=== PATIENT | female | born 1950 | race Caucasian/White ===

== ENCOUNTER 2016-04-03 02:50 | Inpatient (IN) | payer MEDICARE, OTHER ==
--- NOTE | ~2016-04-03 | DS ---
Discharge Summary [id number] [place]. [address] NAME: MARY GEORGE : 50 STATUS : DIS IN PAT#: [id number] AGE: 66 ADM/REG DATE : 04/04/16 MR#: [id number] REPORT SERV DATE: 04/07/16 DICTATED BY: LAMONT DIAS DATE: 04/05/16 REPORT STATUS : Draft TRANSCRIBED BY: MODL DATE: 04/05/16 ADMISSION DATE: 04/04/2016 DISCHARGE DATE: 04/05/2016 REASON FOR ADMISSION: Acute kidney injury and acute cystitis. HPI: Please refer to Dr. Donavon Rouse's history and physical dated 04/03/2016, for complete details regarding patient's admission. In brief, the patient was admitted to Hospitalist Service for acute cystitis and UTI and decreased urine output. HOSPITAL COURSE: The patient had an uncomplicated hospital course. The patient had a Borges catheter placed in the emergency room, and it was discontinued the following day. She has been urinating just fine. She did present with an acute kidney injury with a creatinine of 2.32 and her baseline is around 1.4. She was given IV fluids, started on IV Azactam for an acute cystitis. She has a history of ESBL, E. coli. Urinalysis was positive for UTI. Urine culture came back on the day of discharge, which showed E. coli, that was susceptible to Azactam. She has received about three days worth of IV antibiotics. We will give her 1 dose of fosfomycin prior to discharge. Her acute kidney injury is resolving. We do not have a kidney function on the day of discharge; however, it was down to 1.86 the day prior which was at her baseline. The patient will be discharged in a stable condition. DISCHARGE DIAGNOSES: 1. Acute cystitis secondary to Escherichia coli, now resolving. 2. CROW on CKD stage III, now resolved. 3. Hypoalbuminemia secondary to chronic issues. 4. Chronic pain dependent on narcotics. 5. Generalized anxiety disorder. 6. Hypertension. 7. Obstructive sleep apnea not on CPAP. 8. Morbid obesity. PROCEDURES: Include CT scan of the abdomen and pelvis without contrast, which showed no acute process. DISCHARGE MEDICATIONS: Include aspirin 325 mg daily, Wellbutrin 150 mg daily, Restasis daily, Benadryl p.r.n., Lexapro 20 mg daily, folic acid 1 mg daily, melatonin daily, nicotine patch daily, Spiriva daily, oxycodone 20 mg every eight hours, potassium chloride 10 mEq daily, Xanax 0.5 mg three times a day, Nexium 40 mg p.r.n., Zofran p.r.n., fish oil, p.r.n., Bentyl 20 mg p.r.n., metformin 500 mg with supper, baclofen 10 mg three times a day p.r.n., Bumex 1 mg daily, losartan 25 mg daily, Deltasone 20 mg daily, albuterol p.r.n., fish oil p.r.n. The patient has completed her antibiotics, will follow up with Dr. Holm as scheduled for her urinary issues. Discharge Summary [address] [address] NAME: MARY GEORGE : 50 STATUS : DIS IN PAT#: [id number] AGE: 66 ADM/REG DATE : 04/04/16 MR#: [id number] REPORT SERV DATE: 04/07/16 DICTATED BY: LAMONT DIAS DATE: 04/05/16 REPORT STATUS : Draft TRANSCRIBED BY: JUDI DATE: 04/05/16 MARGE Lamont Dias MD / [id number] CC: MD Jesus Boone M.D. Jeffrey K. Mullins, MD
--- NOTE | ~2016-04-03 | HP ---
History And Physical [address] [place]. [address] NAME: MARY GEORGE : 50 STATUS : ADM Alfonso PAT#: [id number] AGE: 66 ADM/REG DATE : 04/03/16 MR#: [id number] REPORT SERV DATE: 04/03/16 DICTATED BY: ESMER HERNANDEZ DATE: 04/03/16 REPORT STATUS : Draft TRANSCRIBED BY: MODL DATE: 04/03/16 DATE OF ADMISSION: 04/03/2016 CHIEF COMPLAINT: "No urine output." HISTORY OF PRESENT ILLNESS: Ms. George is a 66-year-old female with history of chronic pain, on multiple chronic narcotics as well as multiple admissions for oversedation as well as obstructive sleep apnea, obesity hypoventilation syndrome, and COPD, who presents to the emergency room today with reports of abrupt cessation of urinary output. The patient states that she was in her usual state of health until Tuesday afternoon when she noticed that her urine output abruptly and completely stopped causing her great concern and prompting her presentation to the emergency department. Of note, she did see her primary care physician earlier that day and reportedly was given a prescription for what sounds to be like Bactrim for what she describes as urinary tract infection as well as possible COPD exacerbation. Review of [facility] reveals multiple discharge diagnoses in the past 12 months for acute kidney injury, all of which seemed to have resolved with IV fluids and holding nephrotoxic medications. Initial evaluation in the emergency department notable for a creatinine of 2.32, baseline is usually about 1.3 to 1.6. She also has a urinary tract infection as well. CT imaging was unremarkable except for abdominal aortic aneurysm measuring approximately 3.8 cm in diameter. She denies any fevers, night sweats, chills, cough, sputum production, shortness of breath, chest pain, palpitations, abdominal pain, nausea, vomiting, or diarrhea. Does endorse some constipation as well as decrease in urinary output. REVIEW OF SYSTEMS: Comprehensive review of systems is otherwise negative unless listed in history of present illness. PREVIOUS MEDICAL HISTORY: 1. Chronic pain, on multiple sedating medications. 2. Previous admissions for oversedation and/or overdoses including one requiring intubation. 3. Obstructive sleep apnea. 4. Obesity hypoventilation syndrome. 5. COPD. 6. Bipolar disease. 7. Anxiety. 8. Chronic kidney stage III. Baseline creatinine 1.3 to 1.6. 9. Irritable bowel syndrome. 10.Fibromyalgia. History And Physical [address] [address] NAME: MARY GEORGE : 50 STATUS : ADM Alfonso PAT#: [id number] AGE: 66 ADM/REG DATE : 04/03/16 MR#: [id number] REPORT SERV DATE: 04/03/16 DICTATED BY: ESMER HERNANDEZ DATE: 04/03/16 REPORT STATUS : Draft TRANSCRIBED BY: JUDI DATE: 04/03/16 11.History of DVT. 12.Morbid obesity. 13.Hypertension. 14.Degenerative joint disease. 15.Borderline diabetes. SURGICAL HISTORY: 1. Abdominal hysterectomy. 2. C-spine surgery. 3. Basal cell cancer resection. 4. Wrist surgery. ALLERGIES: INCLUDE CEFADROXIL, PENICILLIN, SULFA DRUGS, LATEX, PHENERGAN, VANCOMYCIN, AND LYRICA. HOME MEDICATIONS: 1. Albuterol one inhalation q.4 hours p.r.n. 2. Xanax 0.5 mg q.8 hours. 3. Aspirin 325 mg daily. 4. Baclofen 10 mg t.i.d. p.r.n. 5. Bumex 1 mg daily. 6. Bupropion 150 mg daily. 7. Cyclosporine 1 drop b.i.d. 8. Dicyclomine 20 mg daily p.r.n. 9. Benadryl 25 mg at bedtime. 10.Doxycycline 100 mg b.i.d. 11.Lexapro 20 mg daily. 12.Nexium 40 mg b.i.d. p.r.n. 13.Folic acid 1 mg daily. 14.Losartan 25 mg daily. 15.Melatonin 10 mg at bedtime. 16.Metformin ER 500 mg daily. 17.Nicotine transdermal patch daily. 18.Zofran 4 mg q.6 hours p.r.n. 19.OxyContin 20 mg q.8 hours. 20.Potassium chloride 10 mEq daily. 21.Prednisone 20 mg daily. 22.Spiriva 1 cap inhalation daily. 23.Fish oil 2 tabs daily. SOCIAL HISTORY: She smokes 2 to 3 cigarettes a day. Denies any alcohol. Denies any illicits. FAMILY MEDICAL HISTORY: The patient states she is adopted and is not aware of her family medical history. LABS AND IMAGING: History And Physical [address] [address] NAME: MARY GEORGE : 50 STATUS : ADM Alfonso PAT#: [id number] AGE: 66 ADM/REG DATE : 04/03/16 MR#: [id number] REPORT SERV DATE: 04/03/16 DICTATED BY: ESMER HERNANDEZ DATE: 04/03/16 REPORT STATUS : Draft TRANSCRIBED BY: MODLatrell DATE: 04/03/16 1. White count is 7.6, hemoglobin is 12.6, hematocrit is 37.9, and platelets 210. 2. Sodium is 137, potassium 3.4, chloride 100, carbon dioxide 27, BUN 22, creatinine 2.32, glucose is 107, calcium is 8.7, protein is 7.9, albumin 3.2, bilirubin is 0.3, ALT is 13, AST is 16, alkaline phosphatase is 88. 3. Urinalysis: Spec gravity is 1.016, cloudy with large leukocyte esterase, 75 white blood cells per high-powered field with 4 epis, occasional bacteria. 4. CT scan of the abdomen and pelvis shows abdominal aortic aneurysm in the proximal abdominal aorta with a 3.8 AP diameter at the level of the celiac trunk. No evidence of rupture. Otherwise, no other abdominopelvic pathology identified. PHYSICAL EXAMINATION: VITAL SIGNS: Temperature is 98.1 degrees Fahrenheit, pulse is 69, respirations 16, saturating 93% on room air. Blood pressure initially 91/69. On recheck, blood pressure is now 113/50. Heart rate of 70. GENERAL: The patient is awake, alert, in no acute distress, resting comfortably in bed. She is a chronically ill-appearing elderly female, who currently is very anxious. HEENT: Atraumatic and normocephalic. Slightly dry mucous membranes. Pupils are equal, round, and reactive to light and accommodation. Extraocular eye movements are intact. No scleral icterus. NECK: No jugular venous distention. No carotid bruits. CARDIAC: Regular rate and rhythm. No murmurs, rubs, or gallops. Normal S1, S2. LUNGS: Clear to auscultation bilaterally. No wheezes, rhonchi, or crackles. ABDOMEN: Obese, soft, nontender, nondistended. Good bowel sounds. No rebound, guarding, or rigidity. EXTREMITIES: Warm and perfused. No cyanosis, clubbing, or edema. SKIN: Warm and dry. PSYCH: Affect is very anxious. NEURO: Alert and oriented x3. Cranial nerves II through XII are grossly intact. Speech is normal. Gait not assessed. ASSESSMENT: Ms. George is a 66-year-old female, who presents with abrupt cessation of urinary output and found to have a recurrent urinary tract infection as well as acute kidney injury on chronic kidney disease, stage 3. PROBLEM LIST: 1. Urinary tract infection. 2. Acute kidney injury on chronic kidney disease, stage 3. 3. Decreased urinary output. 4. Chronic pain on chronic narcotics. 5. Hypertension. 6. Anxiety. PLAN: 1. Urinary tract infection. The patient seems to have had multiple urinary tract infections in the past 12 months. Urine cultures show 2 organisms, one being E. coli and next thing Enterococcus faecalis. Unfortunately, both these organisms are resistant to fluoroquinolones as well as other medications. Given her multiple History And Physical [address] [address] NAME: MARY GEORGE : 50 STATUS : ADM Alfonso PAT#: [id number] AGE: 66 ADM/REG DATE : 04/03/16 MR#: [id number] REPORT SERV DATE: 04/03/16 DICTATED BY: ESMER HERNANDEZ DATE: 04/03/16 REPORT STATUS : Draft TRANSCRIBED BY: MODL DATE: 04/03/16 antibiotic allergies as well, I will initially place the patient on Azactam to treat the E. coli. We will follow up urine culture. 2. Acute kidney injury on chronic kidney disease, stage 3. The patient has also had multiple episodes of acute kidney injury in the past 12 months, all of which seems to have resolved with IV fluids and holding nephrotoxic medications. We will hold her Bumex as well as losartan, provide IV fluid hydration, checking urine lytes as well as renal ultrasound. 3. Decreased urinary output. When Borges catheter was placed in the emergency department, she initially had 100 mL of urinary output, suggesting that she was not having any urinary retention. I suspect this is all due to urinary tract infection as well as possible dehydration and prerenal acute kidney injury. 4. Chronic pain, on chronic narcotics. We will continue these cautiously as the patient has a history of oversedation and hypoxic respiratory failure secondary to her home medications. 5. DVT prophylaxis. Heparin subcu. CODE STATUS: The patient wished to be full code. JCB/MODL Esmer Hernandez MD / [id number] CC: Jesus Miles M.D.
[~2016-04-03 02:50] MED LIST: *UNABLE2; ADVAIR INH; ALBUTEROL5 INH; ALPRAZOLAM; ASAB PO; ASAEC PO; AZOPT OPH; BACDS PO; BACLOFEN20 MG PO; BEN25 PO; BENADRYL 50 MG50 MG PO; BENTYL20 PO; BIOFREEZE WITH120 GM TOP; BUM1 PO; CLEOCIN300 MG PO; COZ25 PO; CYCLOSPORINE OPH; DEMA100 PO; DIAM250B PO; DORYX100 MG PO; DSS PO; DUONEB INH; DURA100 TOP; DURA50 TOP; DURA75 TOP; FENTANYL; FENTANYL PATCH T; FISH OIL OTC PO; FISH OIL PO; FISH-EPA1000 MG PO; FLEX PO; FOLIC ACID; FOLIC PO; FORTAMET500 MG PO; H1 PO; H2 PO; HABIT21 TOP; HALF81 PO; K-TABS10 MEQ PO; KDUR20 PO; KLOR-CON 1010 MEQ PO; KLOR-CON M2020 MEQ PO; L40 PO; LEVAQUIN5T PO; LEXAPRO20 PO; LIDODERM TOP; LIOR10 PO; LORCET PO; LORTAB10 PO; LYRICA50 PO; MELA3 PO; MELATONIN10 M2 PO; MELATONIN5 M1 PO; MICRO-K10 MEQ PO; MOMUD PO; MULTIPLE VIT PO; MULTIVIT/MIN PO; NASACORTAQ NAS; NEUR100 PO; NEXIUM40 PO; NORCO1 TAB PO; NYSTATIN LIQUID PO; NYSTOP100000 MG TOP; ONDANSETRON; OXYCOD PO; OXYCODONE; OXYCODONE HCL 20 MG PO; OXYCON20 PO; P20 PO; POTASSIUM CHLORIDE PO; POTASSIUM RX; PR25 PO; PREGABALIN; PRENATAL VITAMINS PO; PROAIR HFA INH; PROMETHAZINE; PROVHFA INH; PROVIGIL2 PO; RESTASIS OPH; SPIRIVA INH; SPIRO25 PO; SULFAMETHOXAZOLE PO; TRIMETHOPRIM PO; ULTRAM50 PO; VITAMIN D1000 UNI1 PO; VITAMIN D2 PO; WELLXL150 PO; X5 PO; XANAX; XANAX1 MG PO; ZOFRAN4 PO; ZOFRAN8 PO; [UNRECOGNIZED DRUG - OTHER] PO; [UNRECOGNIZED DRUG - OTHER] PO
[2016-04-03 03:44] LABS: BASOPHILS 0.8 %; BASOPHILS ABSOLUTE 0.06 10/3/uL (0.0-0.16); EOSINOPHILS ABSOLUTE 0.68 10/3/uL (0.0-0.53); HEMOGLOBIN 12.6 g/dL (12.0-16.0); IMMATURE GRANULOCYTES 0.3 %; IMMATURE GRANULOCYTES ABSOLUTE 0.02 10/3/uL (0.0-0.11); LYMPHOCYTES 31.5 %; LYMPHOCYTES ABSOLUTE 2.38 10/3/uL (0.67-4.30); MEAN CORPUS HGB CONC 33.2 g/dL (32.0-36.0); MEAN CORPUSCULAR HEMOGLOB 28.4 pg (26.0-34.0); MEAN PLATELET VOLUME 10.6 fL (9.2-13.0); MONOCYTES 7.9 %; NEUTROPHILS 50.5 %; NEUTROPHILS ABSOLUTE 3.82 10/3/uL (2.02-8.40); PLATELET COUNT 210 10/3/uL (150-400); RBC DISTRIBUTION WIDTH 13.9 % (12.0-16.0); RED CELL COUNT 4.44 10/6/uL (4.0-5.6); WHITE BLOOD CELLS 7.6 10/3/uL (4.5-10.5)
[2016-04-03 03:46] LABS: ER CBC TAT 0 Hrs 10 Mins; HEMATOCRIT 37.9 % (36.0-48.0); MANUAL DIFF NO %; MEAN CORPUSCULAR VOLUME 85.4 fL (80-100)
[2016-04-03 03:46] LABS: ASCORBIC ACID (UR NOT ORDER) NEG (NEG); BILIRUBIN, URINE NEGATIVE (NEG); ER URINALYSIS TAT 0 Hrs 00 Mins; KETONE, URINE NEGATIVE (NEG); LEUKOCYTE ESTERASE(NOT OR LARGE (NEG); NITRITE (URINE) NEG (NEG); WBC (NOT ORDERED) (RFLEX) 75 (0-5)
[2016-04-03 04:04] LABS: A/G RATIO 0.7 (0.7-1.9); ALBUMIN 3.2 G/DL (3.5-5.0); ALKALINE PHOSPHATASE 88 U/L (45-117); BUN (BLOOD UREA NITROGEN) 22 MG/DL (6-23); CALCIUM, SERUM 8.7 MG/DL (8.5-10.4); CHLORIDE, SERUM 100 MMOL/L (96-112); CO2 (CARBON DIOXIDE) 27 MMOL/L (24-34); CREATININE 2.32 MG/DL (0.55-1.02); GFR AFRICAN AMERICAN 25 ML/MIN (>=60); GFR NON AFRICAN AMERICAN 21 ML/MIN (>=60); GLOBULIN 4.7 G/DL (2.5-4.1); GLUCOSE, SERUM 107 MG/DL (60-99); POTASSIUM, SERUM 3.4 MMOL/L (3.5-5.3); SGOT(AST) 16 U/L (5-40); SGPT(ALT) 13 U/L (5-65); SODIUM, SERUM 137 MMOL/L (135-148); TOTAL BILIRUBIN 0.3 MG/DL (0-1.2); TOTAL PROTEIN 7.9 G/DL (6.0-8.5)
[2016-04-03] MEDS ORDERED: FISH OIL PO (04:54)
[2016-04-03 05:25] LABS: LACTATE 1.4 MMOL/L (0.3-2.4)
[2016-04-04 04:01] LABS: BASOPHILS 0.6 %; BASOPHILS ABSOLUTE 0.03 10/3/uL (0.0-0.16); EOSINOPHILS 9.8 %; EOSINOPHILS ABSOLUTE 0.47 10/3/uL (0.0-0.53); IMMATURE GRANULOCYTES 0.2 %; IMMATURE GRANULOCYTES ABSOLUTE 0.01 10/3/uL (0.0-0.11); LYMPHOCYTES 34.9 %; LYMPHOCYTES ABSOLUTE 1.68 10/3/uL (0.67-4.30); MEAN CORPUS HGB CONC 33.3 g/dL (32.0-36.0); MEAN CORPUSCULAR HEMOGLOB 29.5 pg (26.0-34.0); MEAN PLATELET VOLUME 10.5 fL (9.2-13.0); MONOCYTES 9.1 %; MONOCYTES ABSOLUTE 0.44 10/3/uL (0.21-1.20); NEUTROPHILS 45.4 %; NEUTROPHILS ABSOLUTE 2.19 10/3/uL (2.02-8.40); PLATELET COUNT 193 10/3/uL (150-400); RBC DISTRIBUTION WIDTH 13.9 % (12.0-16.0); RED CELL COUNT 3.73 10/6/uL (4.0-5.6); WHITE BLOOD CELLS 4.8 10/3/uL (4.5-10.5)
[2016-04-04 04:02] LABS: MANUAL DIFF NO %; MEAN CORPUSCULAR VOLUME 88.5 fL (80-100)
[2016-04-04 04:12] LABS: CALCIUM, SERUM 8.1 MG/DL (8.5-10.4); CHLORIDE, SERUM 109 MMOL/L (96-112); CO2 (CARBON DIOXIDE) 26 MMOL/L (24-34); CREATININE 1.86 MG/DL (0.55-1.02); GFR AFRICAN AMERICAN 32 ML/MIN (>=60); GFR NON AFRICAN AMERICAN 28 ML/MIN (>=60); GLUCOSE, SERUM 97 MG/DL (60-99); POTASSIUM, SERUM 3.8 MMOL/L (3.5-5.3)
[2016-04-04 04:13] LABS: ALBUMIN 2.5 G/DL (3.5-5.0); BUN (BLOOD UREA NITROGEN) 17 MG/DL (6-23); PHOSPHORUS, SERUM 3.4 MG/DL (2.5-4.5); SODIUM, SERUM 144 MMOL/L (135-148)
[2016-04-04 11:12] LABS: TROPONIN I <0.02 NG/ML (<0.05)
[2016-10-11] MEDS ORDERED: BACLOFEN20 MG PO (11:38)
[2016-10-11] MEDS ORDERED: ZOFRAN4 PO (11:39)
[2016-10-11] MEDS ORDERED: OXYCON20 PO (11:40)
[2016-10-11] MEDS ORDERED: VESICARE10 MG PO (11:40)
[2016-10-11] MEDS ORDERED: DURA25 TOP (11:41)
[2016-10-11] MEDS ORDERED: XANAX1 MG PO (11:43)
[2016-10-11] MEDS ORDERED: VENTOLIN HFA INH (11:45)
[2016-10-11] MEDS ORDERED: KDUR10 PO (11:47)
[2016-10-11] MEDS ORDERED: FORTAMET500 MG PO (11:48)
[2016-10-11] MEDS ORDERED: BUMETANIDE PO (11:48)
[2016-10-11] MEDS ORDERED: WELLXL150 PO (11:49)
[2016-10-11] MEDS ORDERED: NEXIUM40 PO (11:50)
[2016-10-11] MEDS ORDERED: L40 PO (11:51)
[2016-10-11] MEDS ORDERED: COZ25 PO (11:52)
[2016-10-11] MEDS ORDERED: *UNABLE1 (11:53)
[2016-10-12] MEDS ORDERED: LEXAPRO20 PO (12:24)
[2016-10-12] MEDS ORDERED: FISH-EPA1000 MG PO (12:25)
[2016-10-12] MEDS ORDERED: HALF81 PO (12:29)
[2016-10-12] MEDS ORDERED: SPIRIVA INH (12:30)
[2016-10-12] MEDS ORDERED: RESTASIS OPH (12:32)
[2016-10-12] MEDS ORDERED: PROVIGIL1 PO (12:33)
[2016-10-12] MEDS ORDERED: RELISTOR PO (12:41)
[2016-10-14] MEDS ORDERED: SEROQUEL50 MG PO (12:33)
== END 2016-04-05 15:45 | disposition home or self-care (01) | DRG 683 ==
LOC: ER 02:50 → 4SO 05:37
PROVIDERS: Internal Medicine; Specialist
DX: N17.9 Acute kidney failure, unspecified (principal); N30.00 Acute cystitis without hematuria; E66.2 Morbid (severe) obesity with alveolar hypoventilation; J44.9 Chronic obstructive pulmonary disease, unspecified; Z68.41 Body mass index [BMI] 40.0-44.9, adult; I12.9 Hypertensive chronic kidney disease with stage 1 through stage 4 chronic kidney disease, or unspecified chronic kidney disease; F41.9 Anxiety disorder, unspecified; Z79.891 Long term (current) use of opiate analgesic; G89.29 Other chronic pain; F17.210 Nicotine dependence, cigarettes, uncomplicated; Z88.8 Allergy status to other drugs, medicaments and biological substances; Z88.1 Allergy status to other antibiotic agents; Z88.0 Allergy status to penicillin; Z88.2 Allergy status to sulfonamides; Z91.040 Latex allergy status; Z79.82 Long term (current) use of aspirin; Z79.84 Long term (current) use of oral hypoglycemic drugs; Z79.52 Long term (current) use of systemic steroids; N18.3 Chronic kidney disease, stage 3 (moderate); E86.0 Dehydration; F31.9 Bipolar disorder, unspecified; K58.9 Irritable bowel syndrome, unspecified; M79.7 Fibromyalgia; Z86.718 Personal history of other venous thrombosis and embolism; Z85.828 Personal history of other malignant neoplasm of skin; B96.20 Unspecified Escherichia coli [E. coli] as the cause of diseases classified elsewhere
CPT/HCPCS: 74176; 80053; 80069; 81001; 82570; 83605; 83935; 84300; 84484; 85025; 87077; 87086; 87186; 96374; 96375; 96376; 99285; A9270-GY; J1956; J2405

== ENCOUNTER 2016-04-16 14:15 | Inpatient (IN) | payer MEDICARE, OTHER ==
--- NOTE | ~2016-04-16 | HP ---
History And Physical [id number] [facility] [place]. [address] NAME: MARY GEORGE : 50 STATUS : ADM IN [facility]#: [id number] AGE: 66 ADM/REG DATE : 04/16/16 MR#: [id number] REPORT SERV DATE: 04/16/16 DICTATED BY: ROSANA VILLARREAL DATE: 04/16/16 REPORT STATUS : Draft TRANSCRIBED BY: MODL DATE: 04/16/16 DATE OF ADMISSION: 04/16/2016 REASON FOR ADMISSION: Hypoxic respiratory failure, altered mental status. HISTORY OF PRESENT ILLNESS: This is an unfortunate 66-year-old obese female with history of MANFRED; obesity hypoventilation syndrome, not on the CPAP, needs a CPAP; history of COPD; bipolar; generalized anxiety disorder; chronic pain management; zealous amounts of narcotics including fentanyl patch and oxycodone and known history of overdoses on benzodiazepines and opiate narcotics per history; known history of fibromyalgia; history of DVT; known history in the past if she has ever had an IVC filter. At one point, she said she did, and then she stated she did not. Imaging did not confirm an IVC filter placement; known history of CKD 3, baseline about 1.6; history of colitis; migraine headaches; IBS; history of hysterectomy, recently discharged in early March for COPD exacerbation; exertional hypoxia, was recommend to go to facility, but the patient demanded to go home. Noted noncompliance. The patient then was readmitted in late 03/2014 and discharged 04/07, for which at that time, was found to have acute cystitis secondary to E. coli, CROW on CKD, hypoalbuminemia, and chronic pain. As a result, the patient was discharged on oxycodone 20 every eight hours, Xanax 0.5 t.i.d. p.r.n., Bentyl, baclofen t.i.d. The patient comes in with significant hypoxia, at one point subjectively was thought to be in the 70s, significant altered mental status. The patient immediately was given 1 mg of IV Narcan. The patient apparently became extremely agitated, getting out of the bed, had to get two separate rounds of 1 mg IV Ativan. Now, the patient is more somnolent. I was asked then asked to admit the patient. When I do sternal rub, the patient awakens with her eyes, she fixates, takes about 20 seconds to fully answer my questions. She does answer appropriately. She says it is 2016. She says it is April. She denies taking any zealous use of narcotics. Cannot reliably tell me if she has any recent fevers, chills, nausea, vomiting, diarrhea, chest pain, or chest pressure. Does note some positive shortness of breath. Chest x-ray here is still pending. REVIEW OF SYSTEMS: Done, see HPI, otherwise negative. PAST MEDICAL HISTORY: See above. PAST SURGICAL HISTORY: See above. ALLERGIES: APPARENTLY ARE PENICILLIN, SULFA, LATEX, PHENERGAN, VANCOMYCIN, LYRICA, CEFADROXIL, THOSE ALL COULD BE POSSIBLY TESTED VIA SKIN TESTING IF SHE TRULY HAS ALLERGIES. SOCIAL HISTORY: She is a former smoker. Unable to determine if she is still actively smoking, two to three cigarettes a day. Denies alcohol. Denies drug use other than her prescriptions. History And Physical [address] [address] NAME: MARY GEORGE : 50 STATUS : ADM IN [facility]#: [id number] AGE: 66 ADM/REG DATE : 04/16/16 MR#: [id number] REPORT SERV DATE: 04/16/16 DICTATED BY: ROSANA VILLARREAL DATE: 04/16/16 REPORT STATUS : Draft TRANSCRIBED BY: JUDI DATE: 04/16/16 FAMILY HISTORY: She is adopted. Not aware of her biologic family history. SURGICAL HISTORY: Includes abdominal hysterectomy, C-spine surgery, basal cell cancer skin resection, wrist surgery. OBJECTIVE: VITAL SIGNS: Thankfully, she is currently now 150 systolic. She was 139/60, breathing 16 breaths a minute. She was 1.77% apparently on room air, now she is 98% on 2 L of oxygen. She is able to protect her airway. She is breathing about 16 breaths a minute. She is afebrile. Her heart rate is about 92. GENERAL: Guarded. HEENT: PERRLA. No scleral icterus. CARDIOVASCULAR: Regular rate and rhythm. No murmur. RESPIRATORY: Decreased breath sounds bibasilarly. Bibasilar crackles. ABDOMEN: Mild tenderness to palpation, more in the epigastric region. No rebound tenderness. No peritoneal signs. EXTREMITIES: She has 1+ nonpitting edema. NEURO: She takes about 20 seconds to answer appropriately. A and O x4/4. GCS of 14 to 15. Does not fully answer my questions if she has fevers or chills or nausea or vomiting. PSYCH: Unable to assess given her neuro status. LABORATORY DATA: Labs are 8.3 white count, 12.2 hemoglobin, 163,000 platelets, 3.6 potassium, 24 bicarb, 1.57 creatinine, 15 BUN. 142 sodium, 141 sugar, albumin 2.5. Urinalysis is clean, just 2 white blood cells, no nitrite, no leukocyte esterase. ABG, 7.37/47/80 on 28%. I am getting a repeat before she goes to the IMCU. CT abdomen and pelvis I am getting is pending. Chest x-ray still pending. Also has an EKG, shows borderline primary AV block, bradycardia at [address]-T changes. ASSESSMENT AND PLAN: 1. Present in the emergency department, acute hypoxic respiratory failure possibly due to opiate and other narcotic overdose with significant reversal on 1 mg of IV Narcan that required compensatory Ativan to keep the patient from becoming a harm to herself and others. 2. Systemic inflammatory response syndrome given tachypnea and tachycardia with heart rate at one time above 90. 3. Generalized anxiety disorder. 4. Possible social handicap if has multiple bouts of drug overdose. 5. History of fibromyalgia. 6. History of irritable bowel syndrome. 7. History of bipolar. 8. Chronic kidney disease. PLAN: We will go ahead and admit this patient empirically to the IMCU, as the patient came in drug overdose, significant respiratory failure saturating in the 70s on room air. Thankfully, she is much more stabilized at this time. I will get an ABG to confirm prior to IMCU transfer. Empirically, we will go ahead and place her on Levaquin and Flagyl. She was History And Physical [address] [place]. [address] NAME: MARY GEORGE : 50 STATUS : ADM IN [facility]#: [id number] AGE: 66 ADM/REG DATE : 04/16/16 MR#: [id number] REPORT SERV DATE: 03/10/17 DICTATED BY: ROSANA VILLARREAL DATE: 04/16/16 REPORT STATUS : Draft TRANSCRIBED BY: MODL DATE: 04/16/16 hypoxic. If her cultures are all negative and tomorrow upon further questioning, she appears to be more drug overdose slowly consider discontinuing the antibiotics, get an interim CT of the brain, CT abdomen and pelvis during abdominal pain. We will also check an ammonia level, urine drug screen. IV Ativan with Narcan p.r.n. Head of bed at least 30 degrees given aspiration risk. Spiriva and Dulera with IV Solu-Medrol given her significant hypoxia present on admission. Could consider possible Psychiatry evaluation and Case Management evaluation regarding bridging as an outpatient for the patient's safety given multiple readmissions and apparent at least more than two history of drug overdose presumed from the history. See rest of my orders. All questions were answered. It took well over 60 minutes to do. Reference [employer]. WST/JAYESHL Rosana Villarreal, DO / [id number] CC: Daniele Marcano M.D.
--- NOTE | ~2016-04-16 | DS ---
Discharge Summary [id number] [place]. [address] NAME: MARY GEORGE : 50 STATUS : DIS IN PAT#: [id number] AGE: 66 ADM/REG DATE : 04/16/16 MR#: [id number] REPORT SERV DATE: 04/21/16 DICTATED BY: ROSA SANTIAGO DATE: 04/20/16 REPORT STATUS : Draft TRANSCRIBED BY: MODL DATE: 04/20/16 ADMISSION DATE: 04/16/2016 DISCHARGE DATE: 04/20/2016 PAIN SPECIALIST: Dr. Yodit Ritchie. FINAL DIAGNOSES: 1. Acute toxic encephalopathy, improved. 2. Medication overdose. 3. Acute hypoxic respiratory failure, resolved. 4. History of chronic obstructive pulmonary disease and obesity hypoventilation syndrome. 5. Status post mild diastolic congestive heart failure. 6. Chronic lymphedema. 7. Chronic kidney disease III. 8. Bipolar 2 disorder. 9. Anxiety disorder. 10.Chronic pain. 11.Morbid obesity. 12.Noncompliance. DIAGNOSTIC EXAMS: Chest x-ray showing recurrent failure, cardiomegaly. AP chest x-ray showing stable mildly prominent pulmonary vasculature without segmental consolidation. CAT scan of the brain showing normal noncontrast head CT. No acute pathology seen. No interval change from January. Echocardiogram showing borderline quality sound transmission. Normal left ventricular systolic function with estimated LVEF of 55%. Normal right ventricular size and function. Mild diastolic dysfunction. HOSPITAL COURSE: Please refer to the H and P done by Dr. Arun Villarreal dated on 04/16/2016. Briefly, this is a 66-year-old female, who comes in with lethargy. The patient has a history of chronic pain, on chronic narcotics, being seen by pain specialist, bipolar, and anxiety and comes in with change in mental status. The patient went to the emergency room with a history that the patient took more than the prescribed medications. ABG was done and she was found to be in acute hypoxic respiratory failure, almost went to the IMCU, but remained stable enough after Narcan was given. The patient was now maintained in telemetry and several times she was told that she needs to taper down her medications, but she refused. We got PT involved and they said that she needs to go to a detention facility and she refused. The patient remained stable since then, but was diagnosed with some mild diastolic congestive heart failure in which we increased her Bumex and tolerated that. The patient wants to increase the medications, and we said she does not need that and that would cause her some harm and basically said that she rather go home so that she can take her own prescribed narcotics. I discussed this with Dr. Miles, who agrees that she needs to be tapered on her narcotics and needs to go to rehab, but if she does not want to we have no choice, but to discharge her. The patient will now be discharged with the above Discharge Summary [id number] [place]. [address] NAME: MARY GEORGE : 50 STATUS : DIS IN PAT#: [id number] AGE: 66 ADM/REG DATE : 04/16/16 MR#: [id number] REPORT SERV DATE: 04/21/16 DICTATED BY: ROSA SANTIAGO DATE: 04/20/16 REPORT STATUS : Draft TRANSCRIBED BY: JUDI DATE: 04/20/16 diagnosis and she will follow up with Dr. Miles and Dr. Yodit Ritchie her pain specialist. The patient will be on the following medications, Xanax 0.25 mg every eight hours, from 1 mg; aspirin 81 mg a day, Bumex 1 mg twice a day; Wellbutrin 150 mg a day; Restasis ophthalmic twice a day; Lexapro 20 mg a day; folic acid 1 mg a day; Cozaar 25 mg a day; melatonin 10 mg a day, fish oil 1000 mg a day; nicotine patch 21 mg a day; Nexium 40 mg twice a day, Spiriva one capsule inhaled a day; OxyContin down to 10 mg twice a day; metformin 500 mg a day; Zofran 4 mg a day; potassium increased to 10 mEq twice a day, multivitamin once a day. I will give her a prescription for Bumex and potassium, however, I will not give her a prescription for Xanax and OxyContin as she prefers to take the higher dose that she was on at home. I would defer further narcotic prescription to her PCP and pain specialist. This has been explained to the patient at length. TIME SPENT: 45 minutes. DENA/JUDI Rosa Santiago M.D. / [id number] CC: Nancy Christine M.D. Patricia Springer, GIS SPECIALIST
--- NOTE | ~2016-04-16 | PUL ---
[address] [place]. [address] NAME: MARY GEORGE : 50 STATUS : ADM IN [facility]#: [id number] AGE: 66 ADM/REG DATE : 04/16/16 MR#: [id number] REPORT SERV DATE: 04/20/16 DICTATED BY: BINH WHEELER IV DATE: 04/19/16 REPORT STATUS : Draft TRANSCRIBED BY: MODL DATE: 04/19/16 PULMONARY FUNCTION TEST OVERNIGHT OXIMETRY Studies performed on room air. About 5 hours and 14 minutes of data are available for review. The mean oxygen saturation was 94.5%. Lowest scored saturation was 91%. The patient spent no time with oxygen saturations less than 88%. IMPRESSION: No significant nocturnal hypoxemia on room air. There is no pattern consistent with obstructive sleep apnea. JEREMY/JUDI Binh Wheeler IV, M.D. / [id number] CC: Nancy Coley M.D.
[2016-04-16 12:15] LABS: ALLENS TEST Pos; BE (BASE EXCESS) 0.5 MEQ/L (0 +/- 2.5); CARBOXYHEMOGLOBIN 1.7 % (0-3); HCO3 (ACTUAL BICARBONATE) 26.3 MEQ/L (23-27); HEMOBLOGIN CONTENT 12.6 G/DL (12-16); INSTRUMENT SERIAL # 8087; METHEMOGLOBIN 0.3 % (0-3); O2 CONTENT 16.7 VOL% (18-24); OPERATOR ID 14335; PCO2 (CO2 TENSION) 47 MMHG (35-45); PO2 (O2 TENSION) 80 MMHG (79-93); SAMPLE Arterial; pH 7.37 (7.37-7.43)
[2016-04-16 13:07] LABS: BASOPHILS 0.5 %; BASOPHILS ABSOLUTE 0.04 10/3/uL (0.0-0.16); EOSINOPHILS 2.4 %; ER CBC TAT 0 Hrs 15 Mins; HEMOGLOBIN 12.2 g/dL (12.0-16.0); IMMATURE GRANULOCYTES 0.1 %; IMMATURE GRANULOCYTES ABSOLUTE 0.01 10/3/uL (0.0-0.11); LYMPHOCYTES 12.8 %; LYMPHOCYTES ABSOLUTE 1.06 10/3/uL (0.67-4.30); MANUAL DIFF NO %; MEAN CORPUSCULAR HEMOGLOB 28.8 pg (26.0-34.0); MEAN CORPUSCULAR VOLUME 87.3 fL (80-100); MEAN PLATELET VOLUME 9.9 fL (9.2-13.0); MONOCYTES 10.5 %; MONOCYTES ABSOLUTE 0.87 10/3/uL (0.21-1.20); NEUTROPHILS 73.7 %; NEUTROPHILS ABSOLUTE 6.12 10/3/uL (2.02-8.40); PLATELET COUNT 163 10/3/uL (150-400); RBC DISTRIBUTION WIDTH 14.8 % (12.0-16.0); RED CELL COUNT 4.24 10/6/uL (4.0-5.6); WHITE BLOOD CELLS 8.3 10/3/uL (4.5-10.5)
[2016-04-16 13:37] LABS: ASCORBIC ACID (UR NOT ORDER) NEG (NEG); BILIRUBIN, URINE NEGATIVE (NEG); ER URINALYSIS TAT 0 Hrs 12 Mins; KETONE, URINE NEGATIVE (NEG); LEUKOCYTE ESTERASE(NOT OR NEG (NEG); NITRITE (URINE) NEG (NEG); WBC (NOT ORDERED) (RFLEX) 2 (0-5)
[2016-04-16] MEDS ORDERED: XANAX1 MG PO (15:00)
[2016-04-16] MEDS ORDERED: FOLIC PO (15:01)
[2016-04-16] MEDS ORDERED: BUM1 PO (15:01)
[2016-04-16] MEDS ORDERED: FORTAMET500 MG PO (15:02)
[2016-04-16] MEDS ORDERED: COZ25 PO (15:02)
[2016-04-16] MEDS ORDERED: ZOFRAN4 PO (15:03)
[2016-04-16] MEDS ORDERED: OXYCODONE PO (15:03)
[2016-04-16] MEDS ORDERED: KLOR-CON 1010 MEQ PO (15:04)
[2016-04-16] MEDS ORDERED: PREDNISONE PO (15:04)
[2016-04-16] MEDS ORDERED: SPIRIVA INH (15:05)
[2016-04-16] MEDS ORDERED: PROVIGIL2 PO (15:07)
[2016-04-16] MEDS ORDERED: LEVAQUIN PO (15:09)
[2016-04-16] MEDS ORDERED: DURA25 TOP (15:09)
[2016-04-16] MEDS ORDERED: *UNABLE2 (15:12)
[2016-04-16 15:56] LABS: BUN (BLOOD UREA NITROGEN) 15 MG/DL (6-23); CALCIUM, SERUM 8.8 MG/DL (8.5-10.4); CHLORIDE, SERUM 106 MMOL/L (96-112); CO2 (CARBON DIOXIDE) 24 MMOL/L (24-34); CREATININE 1.57 MG/DL (0.55-1.02); GFR AFRICAN AMERICAN 39 ML/MIN (>=60); GFR NON AFRICAN AMERICAN 34 ML/MIN (>=60); POTASSIUM, SERUM 3.6 MMOL/L (3.5-5.3); SODIUM, SERUM 142 MMOL/L (135-148)
[2016-04-16 15:57] LABS: GLUCOSE, SERUM 141 MG/DL (60-99)
[2016-04-16 21:53] LABS: AMPHETAMINES (NOT ORD) NEG (NEG); BARBITURATES (NOT ORDERED NEG (NEG); BENZODIAZEPINES (NOT ORD) POS (NEG); CANNABINOIDS (THC) NEG (NEG); COCAINE (NOT ORDERED) NEG (NEG); OPIATES POS (NEG); PHENCYCLIDINE(PCP) NEG (NEG); TRICYCLICS NEG (NEG)
[2016-04-16 21:59] LABS: BASOPHILS 0.5 %; BASOPHILS ABSOLUTE 0.03 10/3/uL (0.0-0.16); EOSINOPHILS 1.2 %; EOSINOPHILS ABSOLUTE 0.08 10/3/uL (0.0-0.53); HEMATOCRIT 33.9 % (36.0-48.0); HEMOGLOBIN 11.4 g/dL (12.0-16.0); IMMATURE GRANULOCYTES 0.3 %; IMMATURE GRANULOCYTES ABSOLUTE 0.02 10/3/uL (0.0-0.11); LYMPHOCYTES 16.5 %; LYMPHOCYTES ABSOLUTE 1.09 10/3/uL (0.67-4.30); MEAN CORPUS HGB CONC 33.6 g/dL (32.0-36.0); MEAN CORPUSCULAR HEMOGLOB 29.3 pg (26.0-34.0); MEAN CORPUSCULAR VOLUME 87.1 fL (80-100); MEAN PLATELET VOLUME 9.4 fL (9.2-13.0); MONOCYTES 10.1 %; MONOCYTES ABSOLUTE 0.67 10/3/uL (0.21-1.20); NEUTROPHILS 71.4 %; NEUTROPHILS ABSOLUTE 4.72 10/3/uL (2.02-8.40); PLATELET COUNT 178 10/3/uL (150-400); RED CELL COUNT 3.89 10/6/uL (4.0-5.6); WHITE BLOOD CELLS 6.6 10/3/uL (4.5-10.5)
[2016-04-16 22:01] LABS: MANUAL DIFF NO %
[2016-04-17 05:12] LABS: A/G RATIO 0.6 (0.7-1.9); ALBUMIN 2.6 G/DL (3.5-5.0); BUN (BLOOD UREA NITROGEN) 13 MG/DL (6-23); CALCIUM, SERUM 8.2 MG/DL (8.5-10.4); CHLORIDE, SERUM 110 MMOL/L (96-112); CO2 (CARBON DIOXIDE) 27 MMOL/L (24-34); CREATININE 1.26 MG/DL (0.55-1.02); GFR AFRICAN AMERICAN 51 ML/MIN (>=60); GFR NON AFRICAN AMERICAN 44 ML/MIN (>=60); GLOBULIN 4.1 G/DL (2.5-4.1); PHOSPHORUS, SERUM 2.9 MG/DL (2.5-4.5); POTASSIUM, SERUM 4.1 MMOL/L (3.5-5.3); SGOT(AST) 19 U/L (5-40); SGPT(ALT) 12 U/L (5-65); SODIUM, SERUM 145 MMOL/L (135-148); TOTAL BILIRUBIN 0.4 MG/DL (0-1.2); TOTAL PROTEIN 6.7 G/DL (6.0-8.5); TROPONIN I <0.02 NG/ML (<0.05); ULTRASENSITIVE TSH 0.748 MCIU/ML (0.358-3.740)
[2016-04-17 05:16] LABS: ALKALINE PHOSPHATASE 69 U/L (45-117); GLUCOSE, SERUM 97 MG/DL (60-99)
[2016-04-17 05:23] LABS: B NATRIURETIC PEPTIDE (BNP) 477.6 PG/ML (< 100.0)
[2016-04-17 06:00] LABS: PROCALCITONIN <0.05 ng/mL (<0.5)
[2016-04-17 10:29] LABS: GLYCOHEMOGLOBIN (HbA1c) 5.7 % (4.7-6.1)
[2016-04-17] MEDS ORDERED: BACLOFEN20 MG PO (14:18)
[2016-04-17] MEDS ORDERED: WELLXL150 PO (14:23)
[2016-04-17] MEDS ORDERED: ASAB PO (14:23)
[2016-04-17] MEDS ORDERED: RESTASIS OPH (14:23)
[2016-04-17] MEDS ORDERED: BEN25 PO (14:24)
[2016-04-17] MEDS ORDERED: NEXIUM40 PO (14:25)
[2016-04-17] MEDS ORDERED: MELATONIN10 M2 PO (14:25)
[2016-04-17] MEDS ORDERED: LEXAPRO20 PO (14:25)
[2016-04-17] MEDS ORDERED: OXYCON20 PO (14:28)
[2016-04-17] MEDS ORDERED: FISH-EPA1000 MG PO (14:31)
[2016-04-17] MEDS ORDERED: HABIT21 TOP (14:31)
[2016-04-17] MEDS ORDERED: CENTRUM PO (14:35)
[2016-04-17] MEDS ORDERED: ZOFRAN4 PO (14:46)
[2016-04-18 06:41] LABS: BASOPHILS 0.3 %; BASOPHILS ABSOLUTE 0.02 10/3/uL (0.0-0.16); EOSINOPHILS 2.2 %; EOSINOPHILS ABSOLUTE 0.15 10/3/uL (0.0-0.53); LYMPHOCYTES ABSOLUTE 2.38 10/3/uL (0.67-4.30); MEAN CORPUS HGB CONC 33.3 g/dL (32.0-36.0); MEAN CORPUSCULAR HEMOGLOB 28.7 pg (26.0-34.0); MEAN CORPUSCULAR VOLUME 86.2 fL (80-100); MEAN PLATELET VOLUME 9.9 fL (9.2-13.0); MONOCYTES 9.9 %; MONOCYTES ABSOLUTE 0.67 10/3/uL (0.21-1.20); NEUTROPHILS 52.6 %; NEUTROPHILS ABSOLUTE 3.58 10/3/uL (2.02-8.40); PLATELET COUNT 193 10/3/uL (150-400); RBC DISTRIBUTION WIDTH 14.6 % (12.0-16.0); RED CELL COUNT 3.83 10/6/uL (4.0-5.6); WHITE BLOOD CELLS 6.8 10/3/uL (4.5-10.5)
[2016-04-18 06:42] LABS: MANUAL DIFF NO %
[2016-04-18 06:52] LABS: BUN (BLOOD UREA NITROGEN) 12 MG/DL (6-23); CALCIUM, SERUM 8.6 MG/DL (8.5-10.4); CHLORIDE, SERUM 102 MMOL/L (96-112); CO2 (CARBON DIOXIDE) 28 MMOL/L (24-34); GFR AFRICAN AMERICAN 50 ML/MIN (>=60); GFR NON AFRICAN AMERICAN 43 ML/MIN (>=60); GLUCOSE, SERUM 95 MG/DL (60-99); PHOSPHORUS, SERUM 2.7 MG/DL (2.5-4.5); POTASSIUM, SERUM 3.8 MMOL/L (3.5-5.3); SODIUM, SERUM 140 MMOL/L (135-148)
[2016-04-18 07:33] LABS: ALLENS TEST Pos; BE (BASE EXCESS) 0.1 MEQ/L (0 +/- 2.5); CARBOXYHEMOGLOBIN 1.3 % (0-3); HCO3 (ACTUAL BICARBONATE) 25.5 MEQ/L (23-27); HEMOBLOGIN CONTENT 12.2 G/DL (12-16); INSTRUMENT SERIAL # 8087; METHEMOGLOBIN 0.3 % (0-3); O2 CONTENT 16.5 VOL% (18-24); OPERATOR ID 14335; PCO2 (CO2 TENSION) 44 MMHG (35-45); PO2 (O2 TENSION) 88 MMHG (79-93); SAMPLE Arterial; pH 7.38 (7.37-7.43)
[2016-04-20] MEDS ORDERED: OXYCON10 PO (17:17)
[2016-10-11] MEDS ORDERED: BACLOFEN20 MG PO (11:38)
[2016-10-11] MEDS ORDERED: ZOFRAN4 PO (11:39)
[2016-10-11] MEDS ORDERED: OXYCON20 PO (11:40)
[2016-10-11] MEDS ORDERED: VESICARE10 MG PO (11:40)
[2016-10-11] MEDS ORDERED: DURA25 TOP (11:41)
[2016-10-11] MEDS ORDERED: XANAX1 MG PO (11:43)
[2016-10-11] MEDS ORDERED: VENTOLIN HFA INH (11:45)
[2016-10-11] MEDS ORDERED: KDUR10 PO (11:47)
[2016-10-11] MEDS ORDERED: BUMETANIDE PO (11:48)
[2016-10-11] MEDS ORDERED: FORTAMET500 MG PO (11:48)
[2016-10-11] MEDS ORDERED: WELLXL150 PO (11:49)
[2016-10-11] MEDS ORDERED: NEXIUM40 PO (11:50)
[2016-10-11] MEDS ORDERED: L40 PO (11:51)
[2016-10-11] MEDS ORDERED: COZ25 PO (11:52)
[2016-10-11] MEDS ORDERED: *UNABLE1 (11:53)
[2016-10-12] MEDS ORDERED: LEXAPRO20 PO (12:24)
[2016-10-12] MEDS ORDERED: FISH-EPA1000 MG PO (12:25)
[2016-10-12] MEDS ORDERED: HALF81 PO (12:29)
[2016-10-12] MEDS ORDERED: SPIRIVA INH (12:30)
[2016-10-12] MEDS ORDERED: RESTASIS OPH (12:32)
[2016-10-12] MEDS ORDERED: PROVIGIL1 PO (12:33)
[2016-10-12] MEDS ORDERED: RELISTOR PO (12:41)
[2016-10-14] MEDS ORDERED: SEROQUEL50 MG PO (12:33)
== END 2016-04-20 19:04 | disposition home health service (06) | DRG 291 ==
LOC: ER 14:15 → IMCU 18:11 → 5SO 04-17 13:50
PROVIDERS: Emergency Medicine; Hospitalist; Internal Medicine
PROC: 5A09457 Assistance with Respiratory Ventilation, 24-96 Consecutive Hours, Continuous Positive Airway Pressure (ICD-10-PCS; principal; 2016-04-16)
DX: I50.33 Acute on chronic diastolic (congestive) heart failure (principal); J96.21 Acute and chronic respiratory failure with hypoxia; G92 Toxic encephalopathy; J96.22 Acute and chronic respiratory failure with hypercapnia; J44.1 Chronic obstructive pulmonary disease with (acute) exacerbation; Z68.41 Body mass index [BMI] 40.0-44.9, adult; F31.81 Bipolar II disorder; F03.90 Unspecified dementia, unspecified severity, without behavioral disturbance, psychotic disturbance, mood disturbance, and anxiety; T40.601A Poisoning by unspecified narcotics, accidental (unintentional), initial encounter; I25.10 Atherosclerotic heart disease of native coronary artery without angina pectoris; I73.9 Peripheral vascular disease, unspecified; R53.81 Other malaise; Z87.891 Personal history of nicotine dependence; Z82.49 Family history of ischemic heart disease and other diseases of the circulatory system; Z88.2 Allergy status to sulfonamides; Z88.5 Allergy status to narcotic agent; K21.9 Gastro-esophageal reflux disease without esophagitis; E66.01 Morbid (severe) obesity due to excess calories; Z91.040 Latex allergy status; Z79.4 Long term (current) use of insulin; Z79.899 Other long term (current) drug therapy
CPT/HCPCS: 36600; 70450; 71010; 80048; 80053; 80305; 81001; 82140; 82150; 82805; 82962; 83036; 83605; 83735; 83880; 84100; 84145; 84443; 84484; 85025; 87040; 87449; 87641; 93005; 94640; 94762; 96374; 96375; 96376; 97162-GP; 99285; A9270-GY; C8929; G8978-CK-GP; G8979-CJ-GP; J1170; J1956; J2310; J2405; J2930; Q9957

== ENCOUNTER 2016-04-22 05:36 | Emergency (ER) | payer MEDICARE, OTHER ==
[2016-04-22 05:15] LABS: BASOPHILS 0.7 %; BASOPHILS ABSOLUTE 0.05 10/3/uL (0.0-0.16); EOSINOPHILS 8.7 %; EOSINOPHILS ABSOLUTE 0.66 10/3/uL (0.0-0.53); ER CBC TAT 0 Hrs 10 Mins; HEMATOCRIT 35.4 % (36.0-48.0); HEMOGLOBIN 11.8 g/dL (12.0-16.0); IMMATURE GRANULOCYTES 0.3 %; IMMATURE GRANULOCYTES ABSOLUTE 0.02 10/3/uL (0.0-0.11); LYMPHOCYTES 33.8 %; LYMPHOCYTES ABSOLUTE 2.58 10/3/uL (0.67-4.30); MEAN CORPUS HGB CONC 33.3 g/dL (32.0-36.0); MEAN PLATELET VOLUME 9.2 fL (9.2-13.0); MONOCYTES 8.5 %; MONOCYTES ABSOLUTE 0.65 10/3/uL (0.21-1.20); NEUTROPHILS ABSOLUTE 3.67 10/3/uL (2.02-8.40); PLATELET COUNT 204 10/3/uL (150-400); RBC DISTRIBUTION WIDTH 14.7 % (12.0-16.0); RED CELL COUNT 4.07 10/6/uL (4.0-5.6); WHITE BLOOD CELLS 7.6 10/3/uL (4.5-10.5)
[2016-04-22 05:17] LABS: ASCORBIC ACID (UR NOT ORDER) NEG (NEG); BILIRUBIN, URINE NEGATIVE (NEG); ER URINALYSIS TAT 0 Hrs 00 Mins; KETONE, URINE NEGATIVE (NEG); LEUKOCYTE ESTERASE(NOT OR NEG (NEG); NITRITE (URINE) NEG (NEG); WBC (NOT ORDERED) (RFLEX) 2 (0-5)
[2016-04-22 05:20] LABS: MANUAL DIFF NO %
[2016-04-22 05:29] LABS: A/G RATIO 0.8 (0.7-1.9); ALBUMIN 3.4 G/DL (3.5-5.0); ALKALINE PHOSPHATASE 78 U/L (45-117); BUN (BLOOD UREA NITROGEN) 24 MG/DL (6-23); CALCIUM, SERUM 8.4 MG/DL (8.5-10.4); CHLORIDE, SERUM 102 MMOL/L (96-112); CO2 (CARBON DIOXIDE) 26 MMOL/L (24-34); CREATININE 1.97 MG/DL (0.55-1.02); GFR AFRICAN AMERICAN 30 ML/MIN (>=60); GFR NON AFRICAN AMERICAN 26 ML/MIN (>=60); GLOBULIN 4.2 G/DL (2.5-4.1); GLUCOSE, SERUM 104 MG/DL (60-99); POTASSIUM, SERUM 3.8 MMOL/L (3.5-5.3); SGOT(AST) 17 U/L (5-40); SGPT(ALT) 20 U/L (5-65); SODIUM, SERUM 139 MMOL/L (135-148); TOTAL BILIRUBIN 0.5 MG/DL (0-1.2); TOTAL PROTEIN 7.6 G/DL (6.0-8.5)
[~2016-04-22 05:36] MED LIST changes: +CENTRUM PO; +DURA25 TOP; +LEVAQUIN PO; +OXYCODONE PO; +OXYCON10 PO; +PREDNISONE PO
[2016-10-11] MEDS ORDERED: BACLOFEN20 MG PO (11:38)
[2016-10-11] MEDS ORDERED: ZOFRAN4 PO (11:39)
[2016-10-11] MEDS ORDERED: OXYCON20 PO (11:40)
[2016-10-11] MEDS ORDERED: VESICARE10 MG PO (11:40)
[2016-10-11] MEDS ORDERED: DURA25 TOP (11:41)
[2016-10-11] MEDS ORDERED: XANAX1 MG PO (11:43)
[2016-10-11] MEDS ORDERED: VENTOLIN HFA INH (11:45)
[2016-10-11] MEDS ORDERED: KDUR10 PO (11:47)
[2016-10-11] MEDS ORDERED: FORTAMET500 MG PO (11:48)
[2016-10-11] MEDS ORDERED: BUMETANIDE PO (11:48)
[2016-10-11] MEDS ORDERED: WELLXL150 PO (11:49)
[2016-10-11] MEDS ORDERED: NEXIUM40 PO (11:50)
[2016-10-11] MEDS ORDERED: L40 PO (11:51)
[2016-10-11] MEDS ORDERED: COZ25 PO (11:52)
[2016-10-11] MEDS ORDERED: *UNABLE1 (11:53)
[2016-10-12] MEDS ORDERED: LEXAPRO20 PO (12:24)
[2016-10-12] MEDS ORDERED: FISH-EPA1000 MG PO (12:25)
[2016-10-12] MEDS ORDERED: HALF81 PO (12:29)
[2016-10-12] MEDS ORDERED: SPIRIVA INH (12:30)
[2016-10-12] MEDS ORDERED: RESTASIS OPH (12:32)
[2016-10-12] MEDS ORDERED: PROVIGIL1 PO (12:33)
[2016-10-12] MEDS ORDERED: RELISTOR PO (12:41)
[2016-10-14] MEDS ORDERED: SEROQUEL50 MG PO (12:33)
== END 2016-04-22 06:29 | disposition home or self-care (01) ==
LOC: ER 05:36
PROVIDERS: Nurse Practitioner
DX: G89.4 Chronic pain syndrome (principal); F11.90 Opioid use, unspecified, uncomplicated; J44.9 Chronic obstructive pulmonary disease, unspecified; I50.9 Heart failure, unspecified; F41.9 Anxiety disorder, unspecified; F31.9 Bipolar disorder, unspecified; Z88.0 Allergy status to penicillin; Z88.2 Allergy status to sulfonamides; Z88.1 Allergy status to other antibiotic agents; Z91.040 Latex allergy status; Z79.82 Long term (current) use of aspirin
CPT/HCPCS: 80053; 81001; 85025; 99284

== ENCOUNTER 2016-10-20 20:50 | Emergency (ER) | payer MEDICARE, OTHER ==
[~2016-10-20 20:50] MED LIST changes: +*UNABLE1; +BUMETANIDE PO; +KDUR10 PO; +PROVIGIL1 PO; +RELISTOR PO; +SEROQUEL50 MG PO; +VENTOLIN HFA INH; +VESICARE10 MG PO
[2016-10-20 21:37] LABS: BASOPHILS 0.2 %; BASOPHILS ABSOLUTE 0.02 10/3/uL (0.0-0.16); EOSINOPHILS 0.4 %; EOSINOPHILS ABSOLUTE 0.04 10/3/uL (0.0-0.53); ER CBC TAT 0 Hrs 03 Mins; HEMATOCRIT 35.5 % (36.0-48.0); HEMOGLOBIN 11.9 g/dL (12.0-16.0); IMMATURE GRANULOCYTES 0.3 %; IMMATURE GRANULOCYTES ABSOLUTE 0.03 10/3/uL (0.0-0.11); LYMPHOCYTES 7.4 %; LYMPHOCYTES ABSOLUTE 0.77 10/3/uL (0.67-4.30); MANUAL DIFF NO %; MEAN CORPUS HGB CONC 33.5 g/dL (32.0-36.0); MEAN CORPUSCULAR HEMOGLOB 30.1 pg (26.0-34.0); MEAN CORPUSCULAR VOLUME 89.9 fL (80-100); MEAN PLATELET VOLUME 9.5 fL (9.2-13.0); MONOCYTES ABSOLUTE 0.73 10/3/uL (0.21-1.20); NEUTROPHILS 84.7 %; PLATELET COUNT 143 10/3/uL (150-400); RBC DISTRIBUTION WIDTH 13.9 % (12.0-16.0); RED CELL COUNT 3.95 10/6/uL (4.0-5.6); WHITE BLOOD CELLS 10.4 10/3/uL (4.5-10.5)
[2016-10-20 21:52] LABS: ALKALINE PHOSPHATASE 78 U/L (45-117); CALCIUM, SERUM 8.5 MG/DL (8.5-10.4); CHLORIDE, SERUM 103 MMOL/L (96-112); CO2 (CARBON DIOXIDE) 25 MMOL/L (24-34); POTASSIUM, SERUM 3.6 MMOL/L (3.5-5.3); SGOT(AST) 14 U/L (5-40); SGPT(ALT) 15 U/L (5-65); SODIUM, SERUM 136 MMOL/L (135-148); TOTAL BILIRUBIN 0.7 MG/DL (0-1.2)
[2016-10-20 21:53] LABS: A/G RATIO 0.8 (0.7-1.9); ALBUMIN 3.5 G/DL (3.5-5.0); BUN (BLOOD UREA NITROGEN) 35 MG/DL (6-23); CREATININE 2.21 MG/DL (0.55-1.02); GFR AFRICAN AMERICAN 26 ML/MIN (>=60); GFR NON AFRICAN AMERICAN 22 ML/MIN (>=60); GLOBULIN 4.6 G/DL (2.5-4.1); GLUCOSE, SERUM 127 MG/DL (60-99); TOTAL PROTEIN 8.1 G/DL (6.0-8.5)
[2016-10-21 02:13] LABS: ASCORBIC ACID (UR NOT ORDER) NEG (NEG); BILIRUBIN, URINE NEGATIVE (NEG); ER URINALYSIS TAT 0 Hrs 00 Mins; KETONE, URINE NEGATIVE (NEG); LEUKOCYTE ESTERASE(NOT OR LARGE (NEG)
[2016-10-21 02:14] LABS: NITRITE (URINE) POS (NEG); WBC (NOT ORDERED) (RFLEX) > 182 (0-5)
[2016-10-21 04:28] LABS: TROPONIN I <0.02 NG/ML (<0.05)
== END 2016-10-21 08:21 | disposition home or self-care (01) ==
LOC: ER 20:50
PROVIDERS: Emergency Medicine
DX: S00.83XA Contusion of other part of head, initial encounter (principal); R10.9 Unspecified abdominal pain; N39.0 Urinary tract infection, site not specified; J44.9 Chronic obstructive pulmonary disease, unspecified; I50.9 Heart failure, unspecified; K21.9 Gastro-esophageal reflux disease without esophagitis; F32.9 Major depressive disorder, single episode, unspecified; F41.9 Anxiety disorder, unspecified; E11.9 Type 2 diabetes mellitus without complications; D64.9 Anemia, unspecified; W18.30XA Fall on same level, unspecified, initial encounter; Z88.0 Allergy status to penicillin; Z88.2 Allergy status to sulfonamides; Z88.1 Allergy status to other antibiotic agents; Z91.040 Latex allergy status; Z88.8 Allergy status to other drugs, medicaments and biological substances; Z79.84 Long term (current) use of oral hypoglycemic drugs; Z79.899 Other long term (current) drug therapy
CPT/HCPCS: 70450; 74176; 80053; 81001; 83690; 84484; 85025; 87077; 87086; 87186; 93005; 99285